=== PATIENT | female | born 1985 | race Caucasian/White ===

== ENCOUNTER → 2016-06-02 | Outpatient (CLI) | payer OTHER ==
--- NOTE | 2016-06-02 16:35 | DI ---
LIMITED OBSTETRICAL ULTRASOUND, 06/02/2016 1:49 PM Clinical History: Size less than dates Previous Exam: None at this facility for this . LMP: 09/04/15 There is a single live IUP currently in vertex presentation. Amnionic fluid content is Normal measuring 10.4 cm activity is observed as follows: There is normal spontaneous motion. The placenta is posterior and Grade 2. heart rate is 133 beats/minute and regular. No abnormalities are noted. BPD, HC, AC, and FL yield an estimated gestational age of, 36 Wee ks, 1 Day. The abdominal circumpherence falls less than the 2nd percentile. Estimated weight measures 2723g (6th percentile). cord dopplers reveal S/D ratios of between 3.5 and 4.2. Readin. Size does not equal dates (estimated gestational age by ultrasound is 2 weeks 5 days behind the EG A by LMP). 2. Normal amniotic fluid index (10.4 cm). 3. Estimated weight at the 6th percentile. ICD9: { } { }
== END ==
LOC: US 13:47
PROVIDERS: ATTEND Family Medicine
DX: O26.843 Uterine size-date discrepancy, third trimester (principal); Z3A.38 38 weeks gestation of pregnancy
CPT/HCPCS: 76815

== ENCOUNTER 2016-06-05 11:06 | Outpatient (CLI) | payer OTHER ==
[2016-06-05] MEDS ORDERED: NORMAL SALINE 10 ML SYRINGE FLUSH IVP PRN (11:53)
[2016-06-05 12:10] VITALS: RESP 18; TEMP 98
[2016-06-05 12:53] LABS: URINE SAMPLE TYPE RANDOM
[2016-06-05 12:54] LABS: COCAINE SCREEN NEGATIVE (NEG); METHAMPHETAMINES SCREEN,URINE NEGATIVE (NEG); TRICYCLIC ANTIDEPRESSANT,URINE NEGATIVE (NEG)
[2016-06-05 13:01] LABS: CANNABINOID SCREEN,URINE POSITIVE (NEG)
--- NOTE | 2016-06-06 08:41 | DI ---
Biophysical profile fetus requested. Nonreactive NST. Procedure: Study performed using 4 MHz transducer. Most recent prior examination dated 06-02-16 Findings: presentation is vertex. Heart rate is 136 beats per minute. GIULIANA is 15.5 with the larg est pocket right upper quadrant, 4.3 cm. Posterior placenta, not well seen. Confirmation of movement and breathing confirmed. tone was not confirmed. Impression: Biophysical profile score 6 with 2 points assigned for normal GIULIANA, movement and attila athing..
--- NOTE | 2016-06-07 05:02 | PDOC(PROG) ---
Intake - - Reason for Visit/Chief Complaint: NST Admitted From: Home - Estimated Due Date: 06/10/16 Gestational Age in Weeks and Days: 39 Weeks and 4 Days : 2 Para: 1 - Labs Blood Type and Rh: O+ Group B Strep: Negative Maternal - Vital Signs Last Taken Vital Signs: Vital Signs - Last Taken Temperature 98.0 F 06/05/16 11:17 Pulse Rate 80 06/05/16 11:17 Respiratory Rate 18 06/05/16 11:17 Blood Pressure 135/96 06/05/16 11:17 Pulse Ox 100 06/05/16 11:17 - Uterine Activity Uterine Contraction Monitor Mode: External Contraction Frequency(minutes): irritability Uterine Contraction Pattern: Irregular Uterine Tone Measurement Phase: Resting Uterine Contraction Intensity: Mild - Cervical Exam Cervical Dilation (cm): 2 Cervical Effacement Percentage: 60 Station: -2 Exam Performed By: Sera - Vaginal Discharge Vaginal Bleeding Amount: None Vaginal Discharge Amount: Small Vaginal Discharge Description: Thin Vaginal Discharge Color: Clear Vaginal Discharge Odor: Odorless Vaginal Itching: No Monitoring - Uterine Activity Uterine Contraction Monitor Mode: External Contraction Frequency(minutes): irritability Uterine Contraction Pattern: Irregular Uterine Tone Measurement Phase: Resting Uterine Contraction Intensity: Mild Results - Bedside Testing Bedside Urine Ketone: Negative Bedside Urine Leukocytes Esterase: Negative Bedside Urine Nitrite: Negative Bedside Urine Protein: Negative Bedside Specific [place]: 1.010 Assessment and Plan - Patient Problems (1) IUGR (intrauterine growth restriction) Status: Acute
== END 2016-06-05 13:31 | disposition home or self-care (01) ==
LOC: OBOP 11:06
PROVIDERS: ATTEND Family Medicine
DX: O36.5930 Maternal care for other known or suspected poor fetal growth, third trimester, not applicable or unspecified (principal); Z3A.39 39 weeks gestation of pregnancy
CPT/HCPCS: 59025; 76818; 81003; 82542; 99211; G0477

== ENCOUNTER 2016-06-06 17:06 | Inpatient (IN) | payer OTHER ==
[2016-06-06] MEDS ORDERED: NORMAL SALINE 10 ML SYRINGE FLUSH IVP PRN ×2 (17:36→18:18)
[2016-06-06 17:52] LABS: COCAINE SCREEN NEGATIVE (NEG); METHAMPHETAMINES SCREEN,URINE NEGATIVE (NEG); TRICYCLIC ANTIDEPRESSANT,URINE NEGATIVE (NEG); URINE SAMPLE TYPE VOIDED SPECIMEN; URINE SPECIFIC GRAVITY - MAN 1.008
[2016-06-06 17:53] LABS: CANNABINOID SCREEN,URINE POSITIVE (NEG)
[2016-06-06] MEDS ORDERED: fentaNYL Inj 100 MCG/2 ML VIAL IV PRN (18:18)
[2016-06-06] MEDS ORDERED: NALOXONE 0.4 MG/1 ML VIAL IVP PRN (18:18)
[2016-06-06] MEDS ORDERED: BUTORPHANOL TARTRATE 2 MG/1 ML VIAL IVP PRN (18:18)
[2016-06-06] MEDS ORDERED: Carboprost Inj 250 MCG/ML AMP IM PRN (18:18)
[2016-06-06] MEDS ORDERED: Metoclopramide Inj 10 MG/2 ML VIAL IV PRN (18:18)
[2016-06-06] MEDS ORDERED: CITRIC ACID/SODIUM CITRATE 30 ML CUP PO PRN (18:18)
[2016-06-06] MEDS ORDERED: diphenhydrAMINE 50 MG/1 ML VIAL IVP PRN (18:18)
[2016-06-06] MEDS ORDERED: TERBUTALINE SULFATE 1 MG/1 ML SDV SUBCUT PRN (18:18)
[2016-06-06] MEDS ORDERED: Naloxone Inj 0.01 MG in Normal Saline Flush 1 ML IVP PRN (18:18)
[2016-06-06] MEDS ORDERED: METHYLERGONOVINE MALEATE 0.2 MG/1 ML VIAL IM PRN (18:18)
[2016-06-06] MEDS ORDERED: CALCIUM CARBONATE 500 MG (TUMS) CHEWABLE TABLET PO PRN (18:18)
[2016-06-06] MEDS ORDERED: Lidocaine 1% 10 MG/ML - 20 ML VIAL SUBCUT PRN (18:18)
[2016-06-06] MEDS ORDERED: CefOXitin Inj 2 GM in Sodium Chloride 0.9% 100 ML IV PRN (18:18)
[2016-06-06] MEDS ORDERED: ONDANSETRON 4 MG/2 ML VIAL IVP PRN (18:18)
[2016-06-06] MEDS ORDERED: Phenylephrine Inj 50 MCG in Normal Saline Flush 0.5 ML IVP PRN (18:18)
[2016-06-06] MEDS ORDERED: OXYTOCIN 10 UNIT/1 ML IM PRN (18:18)
[2016-06-06] MEDS ORDERED: Nalbuphine Inj 20 MG/ML Ampule IVP PRN (18:18)
[2016-06-06] MEDS ORDERED: ePHEDrine Inj 5 MG in Normal Saline Flush 1 ML IVP PRN (18:18)
[2016-06-06] MEDS ORDERED: Famotidine Inj 20 MG in Normal Saline Flush 10 ML IVP PRN ×4 (18:18)
[2016-06-06] MEDS ORDERED: LIDOCAINE W/ SODIUM BICARB 0.5 ML SYR SUBD PRN (18:18)
[2016-06-06] MEDS ORDERED: MISOPROSTOL 200 MCG TABLET RECTAL PRN (18:18)
[2016-06-06] MEDS ORDERED: Oxytocin 20 Units + LR 1,000 ML IV SCH (18:30)
[2016-06-06 19:14] LABS: HEMATOCRIT 44.9 % (37.0-47.0); HEMOGLOBIN 15.8 g/dL (12.0-16.0); MEAN CORPUSCULAR HEMOGLOBIN 30.4 PG (27-31); MEAN CORPUSCULAR HGB CONC 35.2 g/dL (33-37); MEAN PLATELET VOLUME 13.2 FL (7.4-12.2); RDW COEFFICIENT OF VARIATION 13.9 % (11.5-14.5); RED BLOOD COUNT 5.2 10^6/uL (4.20-5.40); WHITE BLOOD COUNT 8.16 10^3/uL (4.8-10.8)
[2016-06-06] MEDS: Lactated Ringers-OB Dept 1,000 ML PRIMARY IV SCH (19:22)
[2016-06-07] MEDS ORDERED: Oxytocin 20 Units + LR 1,000 ML IV ONE (02:26)
--- NOTE | 2016-06-07 04:23 | OB.DEL.SUM ---
Delivery Note Delivery Summary: Pt is a 31 yo G2 now P2 who is 39 4/7 who presented last noc with painful, regular uterine contractions. Her has been remarkable for maternal marijuana use daily and IUGR that was diagnosed and discussed with the pt earlier this week. Pt had declined induction related to this. Yesterday afternoon, she had the onset of contractions and presented to the hospital. Maternal urine tox screen was positive for cannabis. She was in latent labor for several hours and spent some time in the whirlpool and around 0215 was having some pain, so was taken back to her bed. Her cervix was complete at that time. I was called shortly thereafter and was driving to the hospital when I was notified by the nurse that the pt had delivered about a minute after she called me on the phone. The baby delivered in the OP presentation per the nurse in a controlled fashion. The cord was doubly clamped and cut and the baby was vigorous and crying and taken to the warmer for assessment. Upon my arrival to the pt's room at approximately 0230, the placenta had not been delivered. A quick manual check showed that the placenta was present vaginally, so it was delivered with gentle traction on the umbilical cord. It was intact with a 3 vessel cord. 20 mU of pitocin were infused with good hemostasis. The vagina and perineum were examined and no lacerations were noted. Apgars were 8 at 1 minute and 8 at 5 minutes. Baby weighed 5#0.7 oz and had what appeared to be a symmetrical growth restriction. The pt tolerated delivery well and is in stable condition at this time. I did advise the pt that I would like to send her placenta to pathology, but she has declined this and wishes to take it home. She will sign a consent for this. She was also advised that to breast feed would be AGAINST MEDICAL ADVICE. She has agreed to formula feed/supplement the baby with donated breast milk for at least the next 30 days.
[2016-06-07] MEDS ORDERED: LANOLIN HPA 40 GM TUBE TOPICAL PRN (05:46)
[2016-06-07] MEDS ORDERED: diphenhydrAMINE 25 MG CAPSULE PO PRN (05:46)
[2016-06-07] MEDS ORDERED: BENZOCAINE/MENTHOL SPRAY 56 GM BOTTLE TOPICAL PRN (05:46)
[2016-06-07] MEDS ORDERED: Ondansetron ODT Tab 4 MG TAB PO PRN (05:46)
[2016-06-07] MEDS ORDERED: Oxytocin 20 Units + LR 1,000 ML IV SCH (05:46)
[2016-06-07] MEDS ORDERED: HYDROcodone-APAP 5 MG -325 MG TABLET PO PRN (05:46)
[2016-06-07] MEDS ORDERED: METHYLERGONOVINE MALEATE 0.2 MG/1 ML VIAL IM PRN (05:46)
[2016-06-07] MEDS ORDERED: diphenhydrAMINE 50 MG/1 ML VIAL IVP PRN (05:46)
[2016-06-07] MEDS ORDERED: GLYCERIN/WITCH HAZEL 1 BOX TOPICAL PRN (05:46)
[2016-06-07] MEDS ORDERED: CALCIUM CARBONATE 500 MG (TUMS) CHEWABLE TABLET PO PRN (05:46)
[2016-06-07] MEDS ORDERED: OXYTOCIN 10 UNIT/1 ML IM ONE (05:46)
[2016-06-07] MEDS ORDERED: Nalbuphine Inj 20 MG/ML Ampule IVP PRN (05:46)
[2016-06-07] MEDS ORDERED: ONDANSETRON 4 MG/2 ML VIAL IVP PRN (05:46)
[2016-06-07] MEDS ORDERED: NORMAL SALINE 10 ML SYRINGE FLUSH IVP PRN (05:46)
[2016-06-07] MEDS ORDERED: DIPH,PERTUSS,TET(ADACEL) VAC/PF 0.5 ML (Tdap) IM SCH (05:46)
[2016-06-07] MEDS ORDERED: ACETAMINOPHEN 325 MG TABLET PO PRN (05:46)
[2016-06-07] MEDS ORDERED: IBUPROFEN 800 MG TABLET PO PRN (05:46)
[2016-06-07] MEDS ORDERED: MISOPROSTOL 200 MCG TABLET RECTAL ONE (05:46)
[2016-06-07] MEDS ORDERED: Methylergonovine Tab 0.2 MG TAB PO PRN (05:46)
[2016-06-07] MEDS ORDERED: Carboprost Inj 250 MCG/ML AMP IM PRN (05:46)
[2016-06-07] MEDS: Lactated Ringers-OB Dept 1,000 ML PRIMARY IV SCH (06:44)
[2016-06-07] MEDS: DOCUSATE 100 MG CAPSULE PO SCH ×2 (10:47→21:21)
[2016-06-07] MEDS: Prenatal Multivitamin Tab 1 TAB TAB PO SCH (12:14)
[2016-06-08 05:52] LABS: HEMATOCRIT 42.5 % (37.0-47.0); HEMOGLOBIN 14.6 g/dL (12.0-16.0); MEAN CORPUSCULAR HEMOGLOBIN 30.4 PG (27-31); MEAN CORPUSCULAR HGB CONC 34.4 g/dL (33-37); MEAN PLATELET VOLUME 12.4 FL (7.4-12.2); RED BLOOD COUNT 4.81 10^6/uL (4.20-5.40); WHITE BLOOD COUNT 9.01 10^3/uL (4.8-10.8)
[2016-06-08 06:40] VITALS: RESP 18
[2016-06-08] MEDS ORDERED: Prenatal Multivitamin Tab 1 TAB TAB PO SCH (09:00)
[2016-06-08 09:12] VITALS: TEMP 97.9
[2016-06-08] MEDS: DOCUSATE 100 MG CAPSULE PO SCH (09:23)
[2016-06-08] MEDS: Prenatal Multivitamin Tab 1 TAB TAB PO SCH (09:23)
--- NOTE | 2016-06-08 09:29 | OB.PROGRES ---
Subjective Post Day: 1 Pain Management: PO [place] Catheter: No Flatus: Yes Diet: Regular [place] Feeding Method: Formula Feeding (secondary to maternal marijuana use) Ambulating: Yes Concerns / Additional Information: Pt doing well. Moderate lochia. Was upset yesterday after DFS visited with her regarding + tox screen for marijuana. She has agreed to cease with breast feeding the baby and will just bottle feed. Objective - General General Appearance: POSITIVE: No Acute Distress, Cooperative - Cardiovacular Cardiovascular Exam: POSITIVE: RRR, No Murmur Edema: No Pedal Edema Extremities: Negative Veronica's - Bilaterally - Respiratory Respiratory Exam: POSITIVE: Clear to Auscultation - Bilaterally, Breathing Non Labored - Abdomen Bowel Sounds: Present Assesstment / Plan (1) Status post vaginal delivery Current Visit: Yes Status: Acute Assessment / Plan: -routine cares. -bottle feeding as noted above. -DFS involved secondary to maternal marijuana use; pt is aware that this is a hospital policy to report to DFS a + tox screen given our role as healthcare providers. -rh positive. -rubella immune. -d/c home today.
== END 2016-06-08 10:53 | disposition home or self-care (01) | DRG 775 ==
LOC: OBOP 17:06 → OBIP 17:59
PROVIDERS: ADMIT Family Medicine; ATTEND Family Medicine
PROC: 10E0XZZ Delivery of Products of Conception, External Approach (ICD-10-PCS; principal; 2016-06-07)
DX: O36.5930 Maternal care for other known or suspected poor fetal growth, third trimester, not applicable or unspecified (principal); O99.324 Drug use complicating childbirth; F12.90 Cannabis use, unspecified, uncomplicated; Z3A.39 39 weeks gestation of pregnancy; Z37.0 Single live birth
CPT/HCPCS: 36415; 81003; 82542; 85027; J7120

== ENCOUNTER → 2016-08-08 | Outpatient (CLI) | payer OTHER ==
[2016-08-09 12:23] LABS: HIV ANTIBODY NEGATIVE (N); HIV-1 P24 ANTIGEN NEGATIVE (N)
== END ==
LOC: MOB LAB 16:45
PROVIDERS: ATTEND Family Medicine
DX: Z01.419 Encounter for gynecological examination (general) (routine) without abnormal findings (principal); N89.8 Other specified noninflammatory disorders of vagina
CPT/HCPCS: 36415; 86703; 86780; 87491; 87521; 87591

== ENCOUNTER 2016-12-20 10:00 | Emergency (ER) | payer OTHER ==
[2016-12-20 11:03] LABS: BASOPHILS # (AUTO) 0.03 10*3/UL; BASOPHILS % (AUTO) 0.3 % (0-1); EOSINOPHILS # (AUTO) 0.01 10*3/UL; EOSINOPHILS % (AUTO) 0.1 % (0-8); HEMATOCRIT 41.1 % (37.0-47.0); HEMOGLOBIN 13.9 g/dL (12.0-16.0); LYMPHOCYTES # (AUTO) 1.86 10*3/uL; MEAN CORPUSCULAR HEMOGLOBIN 29.9 PG (27-31); MEAN CORPUSCULAR HGB CONC 33.8 g/dL (33-37); MEAN CORPUSCULAR VOLUME 88.4 FL (81-99); MEAN PLATELET VOLUME 11.7 FL (7.4-12.2); MONOCYTES # (AUTO) 0.52 10*3/UL (0.3-0.8); MONOCYTES % (AUTO) 5.5 % (5-15); NEUTROPHILS # (AUTO) 6.94 10*3/UL; NEUTROPHILS % (AUTO) 74.1 % (50-80); PLATELET MORPHOLOGY COMMENT NORMAL MORPHOLOGY (NORM); RBC MORPHOLOGY COMMENT NORMAL MORPHOLOGY (NORM); RED BLOOD COUNT 4.65 10^6/uL (4.20-5.40); WBC MORPHOLOGY COMMENT NORMAL MORPHOLOGY (NORM)
[2016-12-20 12:06] VITALS: RESP 20; TEMP 98.7
--- NOTE | 2016-12-20 12:29 | PDOC ---
Female Problem HPI - General Chief Complaint: Vag Complaint/Bleed, <20WK IUP Stated Complaint: Miscarriage Date Seen by Provider: 12/20/16 Time Seen by Provider: 15:00 - History of Present Illness Initial Comments: Patient is a very nice 31-year-old woman who is here with her significant other with complaints of possible miscarriage. She is on her third and was about 11 weeks according to her dates. She states that yesterday she began to have a little bit of spotting didn't think too much of it because in the past she's had spotting with her 2 other pregnancies as well. Unfortunately into the night last night into this morning she started to pass large clumps of tissue and clotting and substantial amount of bleeding. The bleeding has let up some but she clearly passed a lot of tissue and is concerned that she may have had a miscarriage. She states that she is of a positive blood type has never needed to get Rogaine therapy in the past has never had miscarriages in the past and denies any substantial risk factors for recurrent miscarriage. - Patient Home Medications Home Medications: Home Medications Pnv95/Iron Fum/Folic Acid [ [place]] 1 each PO DAILY 12/12/15 Ibuprofen [Motrin] 800 mg PO Q8H PRN #30 tab 06/08/16 - Patient Allergies Allergies/Adverse Reactions: Allergies Allergy/AdvReac Type Severity Reaction Status Date / Time No Known Allergies Allergy Unverified 08/29/16 16:32 Past Medical History - heen HEENT History: Denies History Cardiovascular History: Denies History Respiratory History: Denies History Gastrointestinal History: Denies History Genitourinary History: Denies History Endocrine History: Denies History Musculoskeletal History: Denies History Prosthesis or Implant: No Neurological History: Denies History Blood Disorders: Denies History Psychiatric History: Denies History History of Sexually Transmitted Diseases: No Female Reproductive History: Denies History LMP: 09/30/2016 Obstetrical History: Denies History, Other (please comment) Additional Obstetrical History: 2 live births, both term, vaginal deliveries : 3 Para: 2 Cancer History: Denies History In Past Year Been Physically Harmed or Verbally Threatened: No History of MDRO: No History of Other Communicable Diseases: No Tobacco Use: Current Every Day Smoker Alcohol Use: None Substance Use Type: Marijuana Previous Surgical History: No Anesthesia Reactions: No Malignant Hyperthermia: No Family History of Malignant Hyperthermia: No Significant Family History: No pertinent family hx Past Medical History Reviewed: Reviewed - No Changes ROS - Limitations ROS Limitations: No Limitations Constitution: REPORTS: Denies Symptoms Cardiovascular: REPORTS: Denies Cardiac Symptoms Respiratory: REPORTS: Denies Resp Symptoms Female Genitourinary Exam - General Appearance General Appearance: POSITIVE: Alert, Cooperative, No Acute Distress - HEENT HEENT: POSITIVE: Head Inspection Nml, Eyes Inspection Nml - Neck Neck: POSITIVE: Normal Inspection - Respiratory Respiratory: POSITIVE: No Respiratory Distress, Breath Sounds Normal - Cardiovascular Cardiovascular: POSITIVE: Regular Rate and Rhythm, Heart Sounds Normal - Abdomen Abdomen: POSITIVE: Tenderness. NEGATIVE: Distended - Back Back: POSITIVE: Normal Inspection - Genital / Rectal Pelvic Exam: POSITIVE: Other (Speculum exam is performed she does have dilation of her cervical os with a very soft cervix there is blood coming from the cervical os but no obvious tissue present. No tissue or products of conception in the vaginal vault either.) Female Genitourinary Progress - Results Reviewed by me Xrays/CTs/US Reviewed by me: Yes Radiology Findings: Ultrasound findings are discussed with the radiologic technician there is no obvious retained products of conception. Lab Results Reviewed: Yes Lab Results:: Laboratory Results 12/20/16 Range/Units 10:54 WBC 9.37 (4.8-10.8) 10^3/uL RBC 4.65 (4.20-5.40) 10^6/uL Hgb 13.9 (12.0-16.0) g/dL Hct 41.1 (37.0-47.0) % MCV 88.4 (81-99) FL MCH 29.9 (27-31) PG MCHC 33.8 (33-37) g/dL RDW Std Deviation 42.6 (39-50) fL RDW Coeff of Renea 13.3 (11.5-14.5) % Plt Count 255 (140-350) 10*3/uL MPV 11.7 (7.4-12.2) FL Immature Gran % (Auto) 0.1 (0-5) % Neut % (Auto) 74.1 (50-80) % Lymph % (Auto) 19.9 (10-50) % [place] % (Auto) 5.5 (5-15) % Eos % (Auto) 0.1 (0-8) % Baso % (Auto) 0.3 (0-1) % Immature Gran # (Auto) 0.01 10*3/UL Neut # (Auto) 6.94 10*3/UL Lymph # (Auto) 1.86 10*3/uL [place] # (Auto) 0.52 (0.3-0.8) 10*3/UL Eos # (Auto) 0.01 10*3/UL Baso # (Auto) 0.03 10*3/UL WBC Morphology Comment Normal morphology (NORM) Plt Morphology Comment Normal morphology (NORM) RBC Morph Comment Normal morphology (NORM) HCG, Quant 1391.9 mIU/ML Blood Type O POSITIVE - Patient's Progress MDM / ED Course: This patient's bleeding is markedly improved. She is down to the flow of a normal period. She states that she is not having fever or chills abdominal pain or any other concerning symptoms at this time. I discussed with her emotional changes associated with miscarriage the importance of getting in with her primary care provider to make sure that her is completed and to follow her for any other needs that she may have. I've also asked her to return here immediately if she has any increased bleeding or other concerns at all. Patient Care Time - Estimated PCT Patient Care Time (In Minutes): 45 Vital Signs - Recent Vital Signs Vital Signs: Vital Signs (Last 8 hours) Temp Pulse Resp BP Pulse Ox 12/20/16 10:08 98.7 F 107 H 20 112/90 100 - VS Reviewed Vital Signs Reviewed: Yes Discharge Clinical Impression: Miscarriage Discharge Disposition: Discharged to Home Condition: Stable Patient Instructions Given at Discharge: Miscarriage (ED) Additional Instructions: Follow-up with [facility] PROFESSOR of your choice in the next 24-48 hours. Return here with any increase in bleeding fever or chills or other concerning issues. Follow Up With: BIGG EUBANKS [Primary Care Provider] -
--- NOTE | 2016-12-20 14:16 | DI ---
US OB LESS THAN 14 WEEKS,12/20/2016 10:29 AM: Clinical History: Likely miscarriage. Evaluate for retained products. Previous Exam: None at this facility. Findings: Multiple grayscale and color Doppler sonographic images are obtained through the pelvis demonstrating a normal-appearing uterus with a normal-appearing endometrial stripe without cystic or solid debris. The right ovary measures 4.2 x 2.0 x 2.6 cm and left ovary measures 3.5 x 2.3 x 2.3 cm and contains n ormal Doppler flow. The urinary bladder is unremarkable. Impression: Normal pelvic ultrasound.
== END 2016-12-20 12:30 | disposition home or self-care (01) ==
LOC: ER 10:00
DX: O03.9 Complete or unspecified spontaneous abortion without complication (principal); Z3A.11 11 weeks gestation of pregnancy; Z72.0 Tobacco use
CPT/HCPCS: 36415; 76801; 84702; 85025; 86900; 86901; 99283

== ENCOUNTER → 2016-12-26 | Outpatient (CLI) | payer OTHER | LOC: LAB 11:44 | PROVIDERS: ATTEND Family Medicine | DX: O03.9 Complete or unspecified spontaneous abortion without complication (principal) | CPT/HCPCS: 36415; 84702 ==